=== PATIENT | female | born 1965 | race Caucasian/White ===

== ENCOUNTER → 2021-03-24 22:01 | Outpatient (CLI) | payer BC, SELFPAY ==
[2021-03-24 15:27] VITALS: BMI 51.0
[2021-03-24 22:24] LABS: ALB/GLOB Ratio 0.8 RATIO (0.9-2.4); AST(SGOT) 15 U/L (15-37); Alanine Aminotransfer ALT/SGPT 23 U/L (13-56); Albumin, Serum 3.7 g/dL (3.2-5.0); Alkaline Phosphatase 86 U/L (45-117); Anion Gap 8 (5-15); BUN 22 mg/dL (7-18); BUN/Creat Ratio 26.7 RATIO (10-20); Calcium,Total 9.4 mg/dL (8.5-10.1); Chloride 104 mmol/L (98-107); Cholesterol 267 mg/dL (200); Creatinine, Serum 0.82 mg/dL (0.55-1.02); EST Glomerular Filtration Rate 76 mL/min (>60); Est Glom Filt Rate - Afr Amer 92 mL/min (>60); Globulin 4.5 g/dL (2.2-4.2); Glucose 116 mg/dL (74-106); High Density Lipoprotein 71 mg/dL; Potassium 4.2 mmol/L (3.5-5.1); Protein, Total 8.2 g/dL (6.4-8.2); Sodium Level 137 mmol/L (136-145); Triglycerides 186 mg/dL; Very Low Density Lipoprotein 37 mg/dL (5-40)
== END ==
PROVIDERS: Referring Provider Nurse Practitioner; Visit Provider Nurse Practitioner
DX: E11.65 Type 2 diabetes mellitus with hyperglycemia (principal); E11.69 Type 2 diabetes mellitus with other specified complication; E78.5 Hyperlipidemia, unspecified; I10 Essential (primary) hypertension
CPT/HCPCS: 80053; 80061

== ENCOUNTER 2022-01-24 21:15 | Outpatient (CLI) | payer BC, SELFPAY ==
[2022-01-24 21:37] LABS: ALB/GLOB Ratio 0.8 RATIO (0.9-2.4); AST(SGOT) 14 U/L (15-37); Alanine Aminotransfer ALT/SGPT 22 U/L (13-56); Albumin, Serum 3.6 g/dL (3.2-5.0); Alkaline Phosphatase 77 U/L (45-117); Anion Gap 7 (5-15); BUN 24 mg/dL (7-18); BUN/Creat Ratio 29.6 RATIO (10-20); Calcium,Total 9.6 mg/dL (8.5-10.1); Chloride 108 mmol/L (98-107); Cholesterol 153 mg/dL (200); Creatinine, Serum 0.81 mg/dL (0.55-1.02); EST Glomerular Filtration Rate 77 mL/min (>60); Est Glom Filt Rate - Afr Amer 93 mL/min (>60); Globulin 4.3 g/dL (2.2-4.2); Glucose 127 mg/dL (74-106); High Density Lipoprotein 64 mg/dL; Potassium 4.1 mmol/L (3.5-5.1); Protein, Total 7.9 g/dL (6.4-8.2); Sodium Level 139 mmol/L (136-145); Triglycerides 125 mg/dL; Very Low Density Lipoprotein 25 mg/dL (5-40)
== END 2022-01-24 23:59 | disposition home or self-care (01) ==
PROVIDERS: Visit Provider Nurse Practitioner
DX: E11.69 Type 2 diabetes mellitus with other specified complication (principal); E11.65 Type 2 diabetes mellitus with hyperglycemia; I10 Essential (primary) hypertension; E78.5 Hyperlipidemia, unspecified
CPT/HCPCS: 80053; 80061

== ENCOUNTER → 2023-07-25 | Outpatient (CLI) | payer BC, SELFPAY ==
[2023-07-25 22:12] LABS: Absolute Neutrophil Count 4.3 X10^3/uL (2.0-7.7); Basophil# 0.05 X10^3/uL; Basophil% 0.6 % (0-1); Eosinophil# 0.08 X10^3/uL; Hematocrit 41.9 % (37-47); Hemoglobin 13.6 g/dL (12.0-15.0); Lymphocyte % 38.8 % (19-41); Mean Corp Hgb Conc 32.5 g/dL (32-36); Mean Corpuscular Volume 89.3 fL (81-99); Mean Platelet Vol. 11.4 fl (6.2-12.0); Monocyte# 0.55 X10^3/uL; Monocyte% 6.7 % (0-10); NRBC Flagged by Analyzer 0 % (0-5); Neutrophil # 4.34 X10^3/uL (2.7-7.7); Neutrophil % 52.7 % (47-70); Platelet Count 258 K/mm3 (150-450); RBC Distribution Width CV 14.4 % (11.6-14.6); Red Blood Count 4.69 M/mm3 (4.2-5.4); White Blood Count 8.2 K/mm3 (4.4-11.0)
[2023-07-25 22:18] LABS: ALB/GLOB Ratio 0.9 RATIO (0.9-2.4); AST(SGOT) 15 U/L (15-37); Alanine Aminotransfer ALT/SGPT 27 U/L (13-56); Albumin, Serum 3.5 g/dL (3.2-5.0); Alkaline Phosphatase 87 U/L (45-117); Anion Gap 8 (5-15); BUN 26 mg/dL (7-18); BUN/Creat Ratio 23.2 RATIO (10-20); Calcium,Total 9.3 mg/dL (8.5-10.1); Chloride 107 mmol/L (98-107); Cholesterol 191 mg/dL (200); Creatinine, Serum 1.12 mg/dL (0.55-1.02); EST Glomerular Filtration Rate 53 mL/min (>60); Est Glom Filt Rate - Afr Amer 64 mL/min (>60); Globulin 4.1 g/dL (2.2-4.2); Glucose 217 mg/dL (74-106); High Density Lipoprotein 71 mg/dL; Potassium 3.7 mmol/L (3.5-5.1); Protein, Total 7.6 g/dL (6.4-8.2); Sodium Level 138 mmol/L (136-145); Triglycerides 250 mg/dL; Very Low Density Lipoprotein 50 mg/dL (5-40)
== END | disposition home or self-care (01) ==
PROVIDERS: Visit Provider Nurse Practitioner
DX: E11.69 Type 2 diabetes mellitus with other specified complication (principal); E11.65 Type 2 diabetes mellitus with hyperglycemia; I10 Essential (primary) hypertension; E78.5 Hyperlipidemia, unspecified
CPT/HCPCS: 80053; 80061; 83036; 85025

== ENCOUNTER → 2024-09-08 | Outpatient (CLI) | payer BC, SELFPAY ==
--- OUTSIDE RECORDS SUMMARY | 2024-09-08 21:28 | XMS RPT_ITS | CCD ---
Author Organization [facility] Care Team Providers Care Lasting Machine Operator Name Role Phone ENDER MUÑOZ Yakelin Primary [facility] Unavailable Allergies Allergy Classification Reported Allergen(s) Allergy Type Date of Onset Reaction(s) Facility (1 source) Erythromycin; Translations: [ERYTHROMYCIN] Drug Allergy 6 [facility] Repository (1 source) Penicillins; Translations: [PENICILLINS] Propensity to adverse reactions to drug (disorder) 6 [facility] Repository Problems Problem Classification Problem Date Documented Da te Episodic/Chronic E Codes: Fall (1 source) Unspecified fall, initial encounter; Translations: [Fall, initial encounter] Onset: 09-16-2023 Episodic Other connective tissue disease (1 source) Myalgia, unspecified site; Translations: [Myalgia] Onset: 09-16-2023 Episodic Results Test Name Value Interpretation Reference [facility] HNO ID: [id number] Author: Elina Godoy RT(Sophia) Service: Radiology Author Type: Technologist Type: Allied Health Filed: 09/16/2023 8:13 PM Note Text: Radiology Service Progress Note PATIENT NAME: Felix Juan DATE OF SERVICE: September 16, 2023 TIME: 8:12 PM PATIENT IDENTITY VERIFICATION COMPLETED USING TWO (2) IDENTIFIERS: Name and Date of confirmed by patient verbally. FALL SCREENING: Has the patient had 2 falls in the last year or 1 fall with injury or currently using an Ambulatory Assistive Device (Walker, Cane, Wheelchair, Crutches, etc.)? Emergency Room Patient: Screened in ED PATIENT GENDER DATA: Female. status: : No status: NO. PATIENT RELEVANT IMPLANT DATA REVIEWED: Not Applicable RADIOLOGY DEPARTMENT: General X-ray: Exam(s) Completed: Upper Extremity X-Ray(s): Hand, left PERIPHERAL IV DATA: Not applicable SIGNED BY: RT Jr(R) September 16, 2023 8:[address] [facility] ALL[facility] HNO ID: [id number] Author: Lise Spencer CT Service: Radiology Author Type: Technologist Type: Allied Health Filed: 09/16/2023 7:38 PM Note Text: Radiology Service Progress Note PATIENT NAME: Felix Juan DATE OF SERVICE: September 16, 2023 TIME: 7:35 PM PATIENT IDENTITY VERIFICATION COMPLETED USING TWO (2) IDENTIFIERS: Name and Date of confirmed by patient verbally and Name and Date of confirmed by identification band. FALL SCREENING: Has the patient had 2 falls in the last year or 1 fall with injury or currently using an Ambulatory Assistive Device (Walker, Cane, Wheelchair, Crutches, etc.)? Emergency Room Patient: Screened in ED PATIENT GENDER DATA: Female. status: : No status: NO. PATIENT RELEVANT IMPLANT DATA REVIEWED: Not Applicable RADIOLOGY DEPARTMENT: CT; Exam(s) Completed: Brain and Spine PERIPHERAL IV DATA: Not applicable SIGNED BY: KIRSTEN Marie September 16, 2023 7:[address] [facility] CT BRAIN WO IVCONon 09-16-[address] BRAIN WO IVCON * * *Final Report* * * DATE OF EXAM: Sep 16 2023 7:45PM [facility] - CT BRAIN WO IVCON / PROCEDURE REASON: Head trauma, moderate-severe * * * * Physician Interpretation * * * * EXAMINATION: CT BRAIN WO IVCON, CT CERVICAL SPINE WO IVCON CLINICAL HISTORY: Status post fall. Head and neck pain. Trauma. TECHNIQUE: Serial axial unenhanced images were obtained from the vertex to the foramen magnum. Coronal reconstructions the brain were performed. Spiral, high resolution axial unenhanced images were obtained from the skull base to the cervicothoracic junction with sagittal and coronal planar reconstructions. MQ: CTBCSWO_3 Dose-Length Product (DLP): 1272 mGy*cm. CT Dose Reduction Employed: Automated exposure control(AEC) and iterative recon COMPARISON: 09/27/2018. RESULT: BRAIN: Acute change: No evidence of an acute contusion or other acute parenchymal process. Hemorrhage: No evidence of acute intracranial hemorrhage. Mass lesion / Mass effect: There is no evidence of an intracranial mass or extraaxial fluid collection. No significant mass effect. Chronic change: Scattered patchy foci of low attenuation are present within supratentorial white matter which is a nonspecific finding but likely represents mild microvascular ischemia. Atherosclerotic vascular calcifications are present. Parenchyma: There is mild generalized volume loss. The brain parenchyma is otherwise within normal limits for age. Ventricles: The ventricles are within normal limits of size and configuration for age. Paranasal sinuses and skull base: The visualized paranasal sinuses are grossly clear. The skull base and visualized extracranial soft tissues are grossly normal. Postulant (topogram) images: No additional findings. CERVICAL: Counting reference: Craniocervical junction. Anatomic Variant: None. Assume 7 cervical vertebrae with counting from the craniocervical junction. Alignment: Alignment is anatomic. No acute traumatic subluxation of the cervical spine. Craniocervical junction: Craniocervical junction is normal. Osseous structures/fracture: No evidence of a lytic or blastic process in the visualized spine. No evidence of acute or chronic fracture. Cervical soft tissues: The paraspinal soft tissues planes are maintained. Degenerative changes: Discogenic degenerative changes of the lower cervical spine at C5-6 causing mild central canal stenosis and left-sided neural foraminal narrowing. Postulant (topogram) images: No additional findings. IMPRESSION: No CT evidence of acute intracranial process. No evidence of an acute fracture or acute traumatic subluxation of the cervical spine. Discogenic degenerative changes of the lower cervical spine at C5-6 causing mild central canal stenosis and left-sided neural foraminal narrowing. Scoring Machine Operator: [facility]ITAL[facility] Transcribe Date/Time: Sep 16 2023 7:50P Dictated by : DREW VALADEZ MD This examination was interpreted and the report reviewed and electronically signed by: DREW VALADEZ MD on Sep 16 2023 7:55PM EST [id number] [facility] CT CERVICAL SPINE WO IVCONon 09-16-2023 CT CERVICAL SPINE WO IVCON * * *Final Report* * * DATE OF EXAM: Sep 16 2023 7:45PM [facility] [place] [facility] - CT CERVICAL SPINE WO IVCON / PROCEDURE REASON: Spine fracture, cervical, traumatic * * * * Physician Interpretation * * * * EXAMINATION: CT BRAIN WO IVCON, CT CERVICAL SPINE WO IVCON CLINICAL HISTORY: Status post fall. Head and neck pain. Trauma. TECHNIQUE: Serial axial unenhanced images were obtained from the vertex to the foramen magnum. Coronal reconstructions the brain were performed. Spiral, high resolution axial unenhanced images were obtained from the skull base to the cervicothoracic junction with sagittal and coronal planar reconstructions. MQ: CTBCSWO_3 Dose-Length Product (DLP): 1272 mGy*cm. CT Dose Reduction Employed: Automated exposure control(AEC) and iterative recon COMPARISON: 09/27/2018. RESULT: BRAIN: Acute change: No evidence of an acute contusion or other acute parenchymal process. Hemorrhage: No evidence of acute intracranial hemorrhage. Mass lesion / Mass effect: There is no evidence of an intracranial mass or extraaxial fluid collection. No significant mass effect. Chronic change: Scattered patchy foci of low attenuation are present within supratentorial white matter which is a nonspecific finding but likely represents mild microvascular ischemia. Atherosclerotic vascular calcifications are present. Parenchyma: There is mild generalized volume loss. The brain parenchyma is otherwise within normal limits for age. Ventricles: The ventricles are within normal limits of size and configuration for age. Paranasal sinuses and skull base: The visualized paranasal sinuses are grossly clear. The skull base and visualized extracranial soft tissues are grossly normal. Postulant (topogram) images: No additional findings. CERVICAL: Counting reference: Craniocervical junction. Anatomic Variant: None. Assume 7 cervical vertebrae with counting from the craniocervical junction. Alignment: Alignment is anatomic. No acute traumatic subluxation of the cervical spine. Craniocervical junction: Craniocervical junction is normal. Osseous structures/fracture: No evidence of a lytic or blastic process in the visualized spine. No evidence of acute or chronic fracture. Cervical soft tissues: The paraspinal soft tissues planes are maintained. Degenerative changes: Discogenic degenerative changes of the lower cervical spine at C5-6 causing mild central canal stenosis and left-sided neural foraminal narrowing. Postulant (topogram) images: No additional findings. IMPRESSION: No CT evidence of acute intracranial process. No evidence of an acute fracture or acute traumatic subluxation of the cervical spine. Discogenic degenerative changes of the lower cervical spine at C5-6 causing mild central canal stenosis and left-sided neural foraminal narrowing. Scoring Machine Operator: CARLOS EDUARDO Transcribe Date/Time: Sep 16 2023 7:50P Dictated by : DREW VALADEZ MD This examination was interpreted and the report reviewed and electronically signed by: DREW VALADEZ MD on Sep 16 2023 7:55PM EST [id number] [facility] ED NOTEon 09-16-2023 ED NOTE HNO ID: [id number] Author: Louis Carey RN Service: ? Author Type: Registered Nurse Type: ED Notes Filed: 09/16/2023 8:50 PM Note Text: PT DISCHARGED TO home WITH RX X 1. PT INSTRUCTED TO FOLLOW UP WITH MD IN 3 DAYS. ADVISED TO RETURN TO ED WITH WORSENING SIGNS/SYMPTOMS OR FURTHER CONCERNS. PT VERBALIZED UNDERSTANDING OF PLAN. PT AMBULATED FROM DEPARTMENT WITH A STEADY GAIT WITHOUT DIFFICULTY IN CARE OF spouse. IV REMOVED INTACT PRIOR TO DC. [facility] ED PROV NOTEon 09-16-2023 ED PROV NOTE HNO ID: [id number] Author: Dequan Fu PA-C Service: ? Author Type: Physician Special Education Math Teacher Type: ED Provider Notes Filed: 09/16/2023 8:33 PM Note Text: ED Provider Note Patient Name: Felix Juan : 1965 SERVICE DATE: 09/16/23 History Patient presents with: Fall: Fell down multiple stairs at 1545 today Head Injury Neck Pain 57-year-old female presents to the ED today for mechanical fall, patient fell down a few steps, she heard her head and her neck and her left hand, she denies loss of consciousness, denies chest pain or rib pain or hip pain or any other injuries, she denies any blood thinner use. PAST MEDICAL HISTORY Diagnosis Date PMH - PAST MEDICAL HISTORY OF POLYCYSTIC OVARIAN DISORDER PAST SURGICAL HISTORY Procedure Laterality Date CHOLECYSTECTOMY 1982 Cholecystectomy PAST SURGICAL HISTORY OF 2003 SKIN CANCER-FOREHEAD FAMILY HISTORY Problem Relation Age of Onset Thyroid Mother OF THYROID CANCER Hypertension Father Coronary Artery Disease Father Diabetes Brother Social History Tobacco Use Smoking status: Former Packs/day: 0.50 Years: 20.00 Additional pack years: 0.00 Total pack years: 10.00 Types: Cigarettes Quit date: 11/18/2008 Years since quittin.8 Smokeless tobacco: Never Tobacco comments: less then half a pack most days Vaping Use Vaping Use: Never used Substance and Sexual Activity Alcohol use: Yes Comment: OCCASIONAL Drug use: No Sexual activity: Yes Partners: Male ALLERGIES Allergen Reactions Erythromycin Vomiting Penicillins Swelling Review of Systems Constitutional: Negative for chills and fever. HENT: Negative for drooling, ear discharge, hearing loss, mouth sores, postnasal drip, sneezing and voice change. Eyes: Negative for photophobia and visual disturbance. Respiratory: Negative for chest tightness, shortness of breath and wheezing. Cardiovascular: Negative for chest pain and palpitations. Gastrointestinal: Negative for abdominal distention, abdominal pain, anal bleeding, blood in stool, constipation, diarrhea, nausea, rectal pain and vomiting. Genitourinary: Negative for dysuria, flank pain, hematuria, pelvic pain, vaginal bleeding and vaginal discharge. Musculoskeletal: Positive for myalgias and neck pain. Negative for arthralgias and neck stiffness. Skin: Negative for color change. Neurological: Negative for dizziness, numbness and headaches. Psychiatric/Behaviora l: Negative for agitation and confusion. The patient is not hyperactive. Physical Exam Vitals [09/16/23 1733] BP Pulse Temp Temp src Resp SpO2 Weight Height 142/79 (!) 101 36.7 ?C (98 ?F) Temporal 16 97 % 95.3 kg (210 lb) -- Physical Exam Constitutional: Appearance: She is well-developed. HENT: Head: Normocephalic and atraumatic. Nose: Nose normal. Eyes: Conjunctiva/sclera: Conjunctivae normal. Cardiovascular: Rate and Rhythm: Normal rate and regular rhythm. Pulmonary: Effort: Pulmonary effort is normal. No respiratory distress. Breath sounds: Normal breath sounds. No wheezing. Abdominal: General: Bowel sounds are normal. Palpations: Abdomen is soft. Musculoskeletal: General: Tenderness present. Normal range of motion. Cervical back: Normal range of motion and neck supple. Comments: Tender to palpation over the left pinky, little bruise over the left pinky joint, no obvious deformity, full range of motion, sensation intact, Skin: General: Skin is warm and dry. Neurological: General: No focal deficit present. Mental Status: She is alert and oriented to person, place, and time. GCS: GCS eye subscore is 4. GCS verbal subscore is 5. GCS motor subscore is 6. Cranial Nerves: Cranial nerves 2-12 are intact. Sensory: Sensation is intact. Motor: Motor function is intact. Coordination: Coordination is intact. Comments: Patient is alert and oriented x 3. There is no focal neuro deficit noted on exam, affect is normal, speech is normal to rate and articulation, short-term and long-term memory are intact, PERRLA intact, no nystagmus, no ataxia or aphasia, sensation intact with upper and lower extremities, there is no weakness with upper and lower extremities bilaterally, 5/5 strength in both upper and lower extremities, kqskhz-wv-dcyl intact, ldbg-og-[id number] intact, rapid alternative movements intact. Psychiatric: Behavior: Behavior normal. Diagnostic Testing ED Labs Ordered and Reviewed - No data to display Procedures ED Course / Clinical Impression Clinical Impressions as of 09/16/232031 Myalgia Fall, initial encounter Rest flexeril Home meds See pcp Return to ed if sx worsen MDM / Disposition / Plan The medical record is reviewed.Triage note is reviewed and incorporated.The nursing note is reviewed and consistent with patient's history and physical exam findings. The vital signs were reviewed and the vital signs are : (more content not included)... Normal [facility] XR HAND 3V PA/LAT/OBL LTon 1 XR HAND 3V PA/LAT/OBL LT * * *Final Report* * * DATE OF EXAM: Sep 16 2023 8:12PM MDX [id number] - XR HAND 3V PA/LAT/OBL LT / PROCEDURE REASON: Trauma * * * * Physician Interpretation * * * * EXAMINATION: XR HAND 3V PA/LAT/OBL LT HISTORY: LEFT HAND PAIN Trauma. TECHNIQUE: XR HAND 3V PA/LAT/OBL LT Laterality: LEFT Number of different views (projections): 3 M: XB_1 COMPARISON: None. RESULT: No acute fracture or malalignment. Joint spaces are preserved. No radiopaque foreign body. IMPRESSION: No acute fracture or malalignment. Scoring Machine Operator: PSCB Transcribe Date/Time: Sep 16 2023 8:14P Dictated by : JOAO FIERRO MD This examination was interpreted and the report reviewed and electronically signed by: JOAO FIERRO MD on Sep 16 2023 8:15PM EST [id number] Normal [facility] Coronavirus 2019on 0 COVID 19 Result SHINGLE SAWYER Negative Normal Negative for COVID19 (SARS CoV2) by PCR. [facility] Comment on above: Result Comment: This test was developed and its performance characteristics determined by [facility] [place]. This test has been authorized by FDA under an Emergency Use Authorization (EUA). This test has been validated in accordance with the FDA's Guidance Document Policy for Diagnostics Testing in Laboratories Certified to Perform High Complexity Testing under CLIA prior to Emergency use Authorization for Coronavirus Disease 2019 during the Public Health Emergency issued on January 16, 2020. Performed By: #### C OVID ####[facility] [id number] [place], [place] [phone] COVID 19 Source SHINGLE SAWYER Nasopharyngeal Swab Normal [facility] Comment on above: Performed By: #### C OVID ####[facility] [id number] [place], [place] [phone] Edyta 03-10-2020 CNPN Telephone (COVHLD) FELIX JUAN ([id number]) 1965 F Date Time Provider Department 03/10/20 NAZ CASTILLO) COVSYDNEY During your visit today, we recorded the following information about you: Naz Castillo PA-C 03/10/2020 9:00 AM Signed covid hotline, chart reviewed COVID-19 (Novel Coronavirus): ? You are being tested for COVID-19. You will be notified within 2 days if your test comes back positive. ? While awaiting these results, please refer to the following recommendations from the CDC regarding isolation precautions: Steps to Follow: Isolation: You should follow the prevention steps below until a healthcare provider or local or state health department says you can return to your normal activities. Stay home except to get medical care ? People who are mildly ill with COVID-19 are able to isolate at home during their illness. ? You should restrict activities outside your home, except for getting medical care. ? Do not go to work, school, or public areas. Avoid using public transportation, ride-sharing, taxis, or public air travel. Separate yourself from other people and animals in your home People: As much as possible, you should stay in a specific room and away from other people in your home. Also, you should use a separate bathroom, if available. Animals: You should restrict contact with pets and other animals while you are sick with COVID-19, just like you would around other people. Although there have not been reports of pets or other animals becoming sick with COVID-19, it is still recommended that people sick with COVID-19 limit contact with animals until more information is known about the virus. When possible, have another member of your household care for your animals while you are sick. If you are sick with COVID-19, avoid contact with your pet, including petting, snuggling, being kissed or licked, and sharing food. If you must care for your pet or be around animals while you are sick, wash your hands before and after you interact with pets and wear a facemask. See COVID-19 and Animals for more information. Call ahead before visiting your doctor If you have a medical appointment, call the healthcare provider and tell them that you have or may have COVID-19. This will help the healthcare provider's office take steps to keep other people from getting infected or exposed. Personal Protection: You should wear a facemask when you are around other people (e.g., sharing a room or vehicle) or pets. If you are not able to wear a facemask (for example, because it causes trouble breathing), then people who live with you should not stay in the same room with you, or they should wear a facemask if they enter your room. Cover your coughs and sneezes ? Cover your mouth and nose with a tissue when you cough or sneeze. Throw used tissues in a lined trash can. Immediately wash your hands with soap and water for at least 20 seconds or, if soap and water are not available, clean your hands with an alcohol-based hand dog food dough mixer that contains at least 60% alcohol. ? Wash your hands often with soap and water for at least 20 seconds, especially after blowing your nose, coughing, or sneezing; going to the bathroom; and before eating or preparing food. If soap and water are not readily available, use an alcohol-based hand dog food dough mixer with at least 60% alcohol, covering all surfaces of your hands and rubbing them together until they feel dry. Soap and water are the best option if hands are visibly dirty. ? Avoid touching your eyes, nose, and mouth with unwashed hands. Avoid sharing personal household items ? You should not share dishes, drinking glasses, cups, eating utensils, towels, or bedding with other people or pets in your home. After using these items, they should be washed thoroughly with soap and water. Clean all High-touch surfaces everyday ? High touch surfaces include counters, tabletops, doorknobs, bathroom fixtures, toilets, phones, keyboards, tablets, and bedside tables. Use a household cleaning spray or wipe, according to the label instructions. Labels contain instructions for safe and effective use of the cleaning product including precautions you should take when applying the product, such as wearing gloves and making sure you have good ventilation during use of the product. Monitor your symptoms: ? Seek prompt medical attention if your illness is worsening (e.g., difficulty breathing). ? Before seeking care, call your healthcare provider and tell them that you have, or are being evaluated for, COVID-19. Put on a facemask before you enter the facility. These steps will help the healthcare provider's office to keep other people in the office or waiting room from getting infected or exposed. ? If you have a medical emergency and need to call 911, notify the dispatch personnel that you have, or are being evaluated for COVID-19. If possible, put on a facemask before emergency medical services arrive. Discontinuing home isolation: ? Patients with confirmed COVID-19 should remain under home isolation precautions until the risk of secondary transmission to others is thought to be low. The decision to discontinue home isolation precautions should be made on a [id number]-cp-cjim basis, in consultation with healthcare providers and state and local health departments. Close contacts (household members, intimate partners, and caregivers) should follow these recommendations: ? Close contacts should monitor their health; they should call their healthcare provider right away if they develop symptoms suggestive of COVID-19 (e.g., fever, cough, shortness of breath) (see Interim [place] Guidance for Risk Assessment and Public Health Management of Persons with Potential Coronavirus Disease 2019 (COVID-19) Exposure in Travel-associated or Community Settings.) ? Make sure that you understand and can help the patient follow their healthcare provider's instructions for medication(s) and care. You should help the patient with basic needs in the home and provide support for getting groceries, prescriptions, and other personal needs. ? Monitor the patient's symptoms. If the patient is getting sicker, call their healthcare provider and tell them that the patient is being tested for COVID-19. This will help the healthcare provider's office take steps to keep other people in the office or waiting room from getting infected. Ask the healthcare provider to call the local or state health department for additional guidance. If the patient has a medical emergency and you need to call 911, notify the dispatch personnel that the patient has, or is being evaluated for COVID-19. ? Household members should stay in another room or be from the patient as much as possible. Household members should use a separate bedroom and bathroom, if available. ? Prohibit visitors who do not have an essential need to be in the home. ? Make sure that shared spaces in the home have good air flow, such as by an air conditioner or an opened window, weather permitting. ? Perform hand hygiene frequently. Wash your hands often with soap and water for at least 20 seconds or use an alcohol-based hand dog food dough mixer that contains 60 to 95% alcohol, covering all surfaces of your hands and rubbing them together until they feel dry. Soap and water should be used preferentially if hands are visibly dirty. ? Avoid touching your eyes, nose, and mouth with unwashed hands. ? The patient should wear a facemask when around other people. If the patient is not able to wear a facemask (for example, because it causes trouble breathing), you, as the caregiver, should wear a mask when you are in the same room as the patient. ? Wear a disposable facemask and gloves when you touch or have contact with the patient's blood, stool, or body fluids, such as saliva, sputum, nasal mucus, vomit, urine. o Throw out disposable facemasks and gloves after using them. Do not reuse. o When removing personal protective equipment, first remove and dispose of gloves. Then, immediately clean your hands with soap and water or alcohol-based hand dog food dough mixer. Next, remove and dispose of facemask, and immediately clean your hands again with soap and water or alcohol-based hand dog food dough mixer. ? Avoid sharing household items with the patient. You should not share dishes, drinking glasses, cups, eating utensils, towels, bedding, or other items. After the patient uses these items, you should wash them thoroughly ? Wash laundry thoroughly. o Immediately remove and wash clothes or bedding that have blood, stool, or body fluids on them. o Wear disposable gloves while handling soiled items and keep soiled items away from your body. Clean your hands (with soap and water or an alcohol-based hand dog food dough mixer) immediately after removing your gloves. o Read and follow directions on labels of laundry or clothing items and detergent. In general, using a normal laundry detergent according to washing machine instructions and dry thoroughly using the warmest temperatures recommended on the clothing label. ? Place all used disposable gloves, facemasks, and other contaminated items in a lined container before disposing of them with other household waste. Clean your hands (with soap and water or an alcohol-based hand dog food dough mixer) immediately after handling these items. Soap and water should be used preferentially if hands are visibly dirty. ? Discuss any additional questions with your state or local health department or healthcare provider. Additional information Home healthcare personnel should refer to Interim Infection Prevention and Control Recommendations for Patients with Known or Patients Under Investigation for Coronavirus Disease 2019 (COVID-19) in a Healthcare Setting. Close contact is defined as? a) being within approximately 6 feet (2 meters) of a COVID-19 case for a prolonged period of time; close contact can occur while caring for, living with, visiting, or sharing a health care waiting area or room with a COVID-19 case ? or ? b) having direct contact with infectious secretions of a COVID-19 case (e.g., being coughed on). Allergies As of Date: 03/10/2020 Noted Allergy Reaction ERYTHROMYCIN 01/15/2006 11 - Vomiting PENICILLINS 01/15/2006 7 - Swelling Date Reviewed: 10/17/2018 Reviewed by: Mandie Conte Baon - Fully Assessed Reason for Visit: Covid-19 Hotline [1266] Primary Visit Diagnosis:COVID-19 [U07.1, J98.8] Order(s):2019 CORONAVIRUS [SQCOVID] Order #: [id number] FUTURE Prescriptions as of 03/10/2020 Sig: METFORMIN ER 500 MG TABLET,EX* Take 4 tablets by mouth daily* MEDICATION, NON-DATABASE Glucometer. Dx: type 2 DM. To* MEDICATION, NON-DATABASE Teststrips, dispense specific* LANCETS Dispense specific to glucomet* ALCOHOL SWABS Apply 1 application to affect* LISINOPRIL 20 MG TABLET Take 1 tablet by mouth once d* IBUPROFEN 200 MG TABLET Take 200 mg by mouth every 6 * Problem List As Of Date: 03/10/2020 (None) Encounter Status:Closed by NAZ CASTILLO PA-C on 03/10/20 [facility] PROGRESSon 03-10-2020 PROGRESS HNO ID: [id number] Author: Trenton Mcmillan (Pa) Service: ? Author Type: Physician Special Education Math Teacher Type: Progress Notes Filed: 03/10/2020 8:58 AM Note Text: This is an Express Care eVisit note for Felix Denise/Questionnaire reviewed The chief complaint for the visit - Patient presents with: Covid19 [facility]x of DM with anosmia, cough chills. Trenton Mcmillan PA-C [facility] PROGRESSon 06-04-2019 PROGRESS HNO ID: [id number] Author: Hazel Carrera Service: ? Author Type: Trust Evaluation Supervisor Type: Progress Notes Filed: 06/04/2019 9:41 AM Note Text: POP[facility]ATION [facility]ALTH DRAG SAWYER QUICKNOTE Provider Action/FYI: Pended Orders None PHMA Documentation 03/04/2019 03/05/2019 05/18/2019 06/04/2019 Opts out of Population Health Postponed Postponed Postponed Postponed Postponed Date 03/05/2019 05/05/2019 07/19/2019 08/05/2019 Hazel Carrera MA Patient identified by name and . Hazel Carrera MA [facility] PROGRESS HNO ID: [id number] Author: Hazel Carrera Service: ? Author Type: Trust Evaluation Supervisor Type: Progress Notes Filed: 06/04/2019 9:41 AM Note Text: POPULATION HEALTH DRAG SAWYER QUICKNOTE Provider Action/FYI: Print letter, gave to [facility] primary care assistant front office manager to assist an sending certified per Wendy Sorto MD Patient identified by name and . Hazel Carrera MA [facility] PROGRESSon 06-03-2019 PROGRESS HNO ID: [id number] Author: Teri Owens RN Service: ? Author Type: ? Type: Progress Notes Filed: 06/04/2019 9:41 AM Note Text: Message left for patient today on Home and Cell phone To call this office patient needs a follow Up for HCC DM see action items below [facility] CNPNon 06-02-2019 CNPN Telephone ([facility]) FELIX JUAN ([id number]) 1965 F Date Time Provider Department 06/02/19 MEY (PHARMACIST)DEA [facility] During your visit today, we recorded the following information about you: FERNIE HURTADO 06/02/2019 9:23 AM Signed Patient recently referred by PCP to [facility] for DM mngt Called patient to schedule initial appt Unable to reach patient - LMOM to return call to office Dea Mathias PharmD, [facility] Primary Care Clinical Pharmacist Anette Velazquez [facility] FERNIE HURTADO 06/10/2019 11:31 AM Signed Patient recently referred by PCP to [facility] for DM mngt Called patient to schedule initial appt Unable to reach patient - LMOM to return call to office My 2nd attempt reaching out to patient. She [facility] and did not return call. ? ? Dea Mathias PharmD, [facility] Primary Care Clinical Pharmacist Adriana RONQUILLO [facility] DEA MATHIAS PHARMACIST 07/01/2019 2:29 PM Signed Patient has still not returned call to schedule initial appt for DM mngt. Will send letter today and inform PCP. Dea Mathias PharmD, [facility] Primary Care Clinical Pharmacist Adriana RONQUILLO [facility] [address] Guerrierobdulio Pss 07/07/2019 8:07 AM Signed Patient is going elsewhere for her treatment Allergies As of Date: 06/02/2019 Noted Allergy Reaction ERYTHROMYCIN 01/15/2006 11 - Vomiting PENICILLINS 01/15/2006 7 - Swelling Date Reviewed: 10/17/2018 Reviewed by: Mandie Purvis - Fully Assessed Reason for Visit: Patient Outreach [Other] Prescriptions as of 06/02/2019 Sig: METFORMIN ER 500 MG TABLET,EX* Take 4 tablets by mouth daily* MEDICATION, NON-DATABASE Glucometer. Dx: type 2 DM. To* MEDICATION, NON-DATABASE Teststrips, dispense specific* LANCETS Dispense specific to glucomet* ALCOHOL SWABS Apply 1 application to affect* LISINOPRIL 20 MG TABLET Take 1 tablet by mouth once d* IBUPROFEN 200 MG TABLET Take 200 mg by mouth every 6 * Problem List As Of Date: 06/02/2019 (None) Letter Text Encounter Status:Closed by MEY (PHARMACIST)DEA on 06/02/19 [facility] 05-25-2019 CNPN Telephone (PHARMN) FELIX JUAN ([id number]) 1965 F Date Time Provider Department 05/25/19 SOSA CHACON [place]N During your visit today, we recorded the following information about you: PATINECE Rojas [facility] 05/25/2019 9:17 AM Signed Called pt. regarding New Pharmacy referral, left message at [phone]. PATIENCE Rojas [facility] 05/25/2019 2:00 PM Signed Called pt. regarding New Pharmacy referral, left message at [phone]. Sosa Jania [facility] 05/26/2019 10:34 AM Signed Called pt. regarding New Pharmacy referral, left message asking pt. to call the [facility] at her earliest convenience to schedule an appt. [phone]. Allergies As of Date: 05/25/2019 Noted Allergy Reaction ERYTHROMYCIN 01/15/2006 11 - Vomiting PENICILLINS 01/15/2006 7 - Swelling Date Reviewed: 10/17/2018 Reviewed by: Mandie Purvis - Fully Assessed Reason for Visit: New Pharmacy-Med Review [Other] Prescriptions as of 05/25/2019 Sig: METFORMIN ER 500 MG TABLET,EX* Take 4 tablets by mouth daily* MEDICATION, NON-DATABASE Glucometer. Dx: type 2 DM. To* MEDICATION, NON-DATABASE Teststrips, dispense specific* LANCETS Dispense specific to glucomet* ALCOHOL SWABS Apply 1 application to affect* LISINOPRIL 20 MG TABLET Take 1 tablet by mouth once d* IBUPROFEN 200 MG TABLET Take 200 mg by mouth every 6 * Problem List As Of Date: 05/25/2019 (None) Encounter Status:Closed by SOSA CHACON on 05/25/19 [facility] PROGRESSon 05-22-2019 PROGRESS HNO ID: [id number] Author: Wendy Sorto Service: ? Author Type: Physician Type: Progress Notes Filed: 06/04/2019 9:41 AM Note Text: Were you able to reach her? Consult signed Thanks, Dr. Sorto [facility] 05-20-2019 CNPTOUTREACH Patient Outreach ([facility]) FELIX JUAN ([id number]) 1965 F Date Time Provider Department 05/20/19 HAZEL CARRERA) AALIYAH During your visit today, we recorded the following information about you: DEA MATHIAS, PHARMACIST 06/04/2019 9:41 AM Signed A PSS from main campus has made 3 attempts to contact her to schedule appt, most recent attempt was this morning. I plan to try again to contact the patient within the next week. Dea Mathias, PharmD, BCPS Primary Care Clinical Pharmacist Anette Velazquez [facility] Hazel Carrera MA 06/04/2019 9:41 AM Signed PHMA TEAMLET DOCUMENTATION Provider Action/FYI: please sign pended consult PHMA Action/FYI: pended Pharmacy consult to assist an outreaching patient as Hgb a1c is 12.6 with education, medication management Patient has existing fasting labs that need completed Patient will need to have a follow up appointment/virtual visit with Wendy Sorto MD at some point to address all health maintenance items - patient has a complicated work schedule, telephonic may be beneficial or virtual visits Teamlet has identified patient by name and date of . Team: Wendy Sorto MD Pharmacist: Dr. Dea Mathias PHMA: Hazel Carrera RN: Teri Owens PCC: Agnes Flores PSS: Kirstin Vela MA: Indu Turner ? Last Office Visit:10/17/2018 ? Next Office Visit: Visit date not found ? Last BP/Labs: Blood Pressure: Last 3 Encounter BP Readings: Date: BP: 10/17/2018 189/85 10/03/2018 174/86 09/27/2018 180/94[pa sarojaway[ Lipids: No results found for: CHOL No results found for: HDL LDL CholAnette (mg/dL) Date Value 03/25/2006 141 01/31/2006 142 No results found for: TG HGB A1C: Lab Results Component Value Date HBA1C 12.6 10/03/2018 TSH: No results found for: TSH) Care Gap: DM - Need Urine Albumin / NOT checked in last 12 months Needs dilated eye exam - HM overdue Last HGBA1C is NOT under 9% Plan: ? Confirm PCP / Status: active ? Type of appointment needed: Follow-up with Wendy Sorto MD for Diabetes ? Consultation Appointments: Clinical Pharmacy with 2-3 weeks Labs, HM and Immunization: Differ to Health Maintenance as multiple health maintenance items due DONATO Ramirez MD 06/04/2019 9:41 AM Signed Were you able to reach her? Consult signed Thanks, Dr. Noreen Owens RN 06/04/2019 9:41 AM Signed Message left for patient today on Home and Cell phone To call this office patient needs a follow Up for HCC DM see action items below Hazel Carrera MA 06/04/2019 9:41 AM Signed [facility] DRAG SAWYER [place]INGA Provider Action/FYI: Print letter, gave to [facility] primary care assistant front office manager to assist an sending certified per Wendy Sorto MD Patient identified by name and . DONATO Ramirez MA 06/04/2019 9:41 AM Signed [facility] DRAG SAWYER [place]A Provider Action/FYI: Pended Orders None PHMA Documentation 03/04/2019 03/05/2019 05/18/2019 06/04/2019 Opts out of [facility] Postponed Postponed Postponed Postponed Postponed Date 03/05/2019 05/05/2019 07/19/2019 08/05/2019 Hazel Carerra MA Patient identified by name and . Hazel Carrera MA Allergies As of Date: 05/20/2019 Noted Allergy Reaction ERYTHROMYCIN 01/15/2006 11 - Vomiting PENICILLINS 01/15/2006 7 - Swelling Date Reviewed: 10/17/2018 Reviewed by: Mandie Purvis - Fully Assessed Reason for Visit: PHMA/Care Gap Outreach [[id number]] Cmt: Dr. Wendy Sorto STAMP on 05/20/19 - Diabetes/Hypertension Reason For Visit History Recorded Primary Visit Diagnosis:Diabetes mellitus, new onset (HCC) [E11.9] Other Visit Diagnosis:Hypertensio n, essential [I10] Order(s):CONSULT TO AMBULATORY CLINIC PHARMACY [372342] Order #: [id number]: 1 Prescriptions as of 05/20/2019 Sig: METFORMIN ER 500 MG TABLET,EX* Take 4 tablets by mouth daily* MEDICATION, NON-DATABASE Glucometer. Dx: type 2 DM. To* MEDICATION, NON-DATABASE Teststrips, dispense specific* LANCETS Dispense specific to glucomet* ALCOHOL SWABS Apply 1 application to affect* LISINOPRIL 20 MG TABLET Take 1 tablet by mouth once d* IBUPROFEN 200 MG TABLET Take 200 mg by mouth every 6 * Problem List As Of Date: 05/20/2019 (None) Letter Text Encounter Status:Closed by HAZEL LOTT on 06/04/19 [facility] PROGRESSon 05-20-2019 PROGRESS HNO ID: [id number] Author: Hazel Hamlin (Donato) Royer Service: ? Author Type: Trust Evaluation Supervisor Type: Progress Notes Filed: 06/04/2019 9:41 AM Note Text: PHMA TEAMLET DOCUMENTATION Provider Action/FYI: please sign pended consult PHMA Action/FYI: pended Pharmacy consult to assist an outreaching patient as Hgb a1c is 12.6 with education, medication management Patient has existing fasting labs that need completed Patient will need to have a follow up appointment/virtual visit with Wendy Sorto MD at some point to address all health maintenance items - patient has a complicated work schedule, telephonic may be beneficial or virtual visits Teamlet has identified patient by name and date of . Team: Wendy Sorto MD Pharmacist: Dr. Dea Mathias PHMA: Hazel Carrera RN: Teri Owens PCC: Agnes Flores PSS: Kirstin Vela MA: Indu Turner ? Last Office Visit:10/17/2018 ? Next Office Visit: Visit date not found ? Last BP/Labs: Blood Pressure: Last 3 Encounter BP Readings: Date: BP: 10/17/2018 189/85 10/03/2018 174/86 09/27/2018 180/94[pa sarojaway[ Lipids: No results found for: CHOL No results found for: HDL LDL Chol, [place] (mg/dL) Date Value 03/25/2006 141 01/31/2006 142 No results found for: TG HGB A1C: Lab Results Component Value Date HBA1C 12.6 10/03/2018 TSH: No results found for: TSH) Care Gap: DM - Need Urine Albumin / NOT checked in last 12 months Needs dilated eye exam - HM overdue Last HGBA1C is NOT under 9% Plan: ? Confirm PCP / Status: active ? Type of appointment needed: Follow-up with Wendy Sorto MD for Diabetes ? Consultation Appointments: Clinical Pharmacy with 2-3 weeks Labs, HM and Immunization: Differ to Health Maintenance as multiple health maintenance items due Hazel Carrera MA [facility] PROGRESS HNO ID: [id number] Author: Dea Mathias (Pharmacist) Service: ? Author Type: Pharmacist Type: Progress Notes Filed: 06/04/2019 9:41 AM Note Text: A PSS from [facility] has made 3 attempts to contact her to schedule appt, most recent attempt was this morning. I plan to try again to contact the patient within the next week. Dea Mathias, PharmD, BCPS Primary Care Clinical Pharmacist Anette Velazquez [facility] PROGRESSon 05-18-2019 PROGRESS HNO ID: [id number] Author: Kirstin Vela Pss Service: ? Author Type: ? Type: Progress Notes Filed: 05/18/2019 4:25 PM Note Text: The patient has been identified by name and date of : YES I have scheduled the patient for an appointment on Visit date not found. PHMA Documentation 03/03/2019 03/04/2019 03/05/2019 05/18/2019 Opts out of Population Health Postponed Postponed Postponed Postponed Postponed Date 03/04/2019 03/05/2019 05/05/2019 07/19/2019 Kirstin Vela [facility] [place] 05-06-2019 CNPTOUTREACH Patient Outreach ([facility]) FELIX JUAN ([id number]) 1965 F Date Time Provider Department 05/06/19 KIRSTIN VELA ([facility]) [facility] During your visit today, we recorded the following information about you: Kirstin Vela Pss 05/18/2019 4:25 PM Signed Patient needs a follow up with Susy Rivas, Ry HCC diabetes, please add to appt note may need pharm consult SHIRA with Dr Sorto 10/17/19 Patient canceled OV on 01/20/[address] Noreen Vela [facility] 05/18/2019 4:25 PM Signed Spoke to patient, it was not a good time to schedule, 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 Patient will call back to schedule appointment. Kirstin Whitney 05/18/2019 4:25 PM Signed The patient has been identified by name and date of : YES I have scheduled the patient for an appointment on Visit date not found. [facility] Documentation 03/03/2019 03/04/2019 03/05/2019 05/18/2019 Opts out of Population Health Postponed Postponed Postponed Postponed Postponed Date 03/04/2019 03/05/2019 05/05/2019 07/19/2019 Kirstin Whitney Allergies As of Date: 05/06/2019 Noted Allergy Reaction ERYTHROMYCIN 01/15/2006 11 - Vomiting PENICILLINS 01/15/2006 7 - Swelling Date Reviewed: 10/17/2018 Reviewed by: Mandie Purvis - Fully Assessed Reason for Visit: [facility]/Care Gap Outreach [[id number]] Cmt: Dr Sorto STAMP Teamlet 05/06 Prescriptions as of 05/06/2019 Sig: METFORMIN ER 500 MG TABLET,EX* Take 4 tablets by mouth daily* MEDICATION, NON-DATABASE Glucometer. Dx: type 2 DM. To* MEDICATION, NON-DATABASE Teststrips, dispense specific* LANCETS Dispense specific to glucomet* ALCOHOL SWABS Apply 1 application to affect* LISINOPRIL 20 MG TABLET Take 1 tablet by mouth once d* IBUPROFEN 200 MG TABLET Take 200 mg by mouth every 6 * Problem List As Of Date: 05/06/2019 (None) Encounter Status:Closed by KIRSTIN PANTOJA on 05/18/19 [facility] PROGRESSon 05-06-2019 PROGRESS HNO ID: [id number] Author: Kirstin Whitney Service: ? Author Type: ? 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 Patient will call back to schedule appointment. [facility] PROGRESS HNO ID: [id number] Author: Kirstin Whitney Service: ? Author Type: ? Type: Progress Notes Filed: 05/18/2019 4:25 PM Note Text: Patient needs a follow up with Susy Rivas Cnp HCC diabetes, please add to appt note may need pharm consult SHIRA with Dr Sorto 10/17/19 Patient canceled OV on 01/20/[address] Sorto [facility] Encounters Encounter Date Encounter Type Care Provider Facility Start: 09-16-2023 End: 09-16-2023 Emergency department patient visit ENDER MUÑOZ Facility:[facility] Payers Date Payer Category Payer Unknown [id number] Summary Purpose Family History No Family History Records FoundNo Family History Records Found Advance Directives No Advanced Directives Records FoundNo Advanced Directives Records Found Additional Source Comments INFORMATION SOURCE (unrecogn ized section and content) DATE CREATED AUTHOR 03/15/2020 [facility] DATE CREATED AUTHOR AUTHOR'S SAGEIZ ATION 09/17/2023 [facility] FOR RECORDS PERTAINING TO PATIENTS WHO ARE OR HAVE BEEN ENROLLED IN A CHEMICAL DEPENDENCY/SUBSTANCEABUSE PROGRAM, SOME INFORMATION MAY BE OMITTED. This clinical summary was aggregated from multiple sources. Caution should be exercised in using it in the provision of clinical care. This summary normalizes information from multiple sources, and as a consequence, information in this document may materially change the coding, format and clinical context of patient data. In addition, data may be omitted in some cases. CLINICAL DECISIONS SHOULD BE BASED ON THE PRIMARY CLINICAL RECORDS. [employer] provides no warranty or guarantee of the accuracy or completeness of information in this document.
[2024-09-08 21:32] LABS: Absolute Lymphocyte Count 4.53 X10^3/uL (0.83-4.51); Absolute Neutrophil Count 3.7 X10^3/uL (2.0-7.7); Basophil# 0.07 X10^3/uL; Basophil% 0.7 % (0-1); Eosinophil# 0.29 X10^3/uL; Eosinophils% 3.1 % (0-5); Hematocrit 41.9 % (37-47); Hemoglobin 13.4 g/dL (12.0-15.0); Lymphocyte # 4.53 X10^3/ul (0.83-4.51); Lymphocyte % 48.3 % (19-41); Mean Corpuscular Hgb 28.3 pg (27.0-32.0); Mean Corpuscular Volume 88.6 fL (81-99); Mean Platelet Vol. 10.7 fl (6.2-12.0); Monocyte# 0.74 X10^3/uL; Monocyte% 7.9 % (0-10); NRBC Flagged by Analyzer 0 % (0-5); Neutrophil # 3.72 X10^3/uL (2.7-7.7); Neutrophil % 39.8 % (47-70); POSITIVE MORPHOLOGY YES; Platelet Count 262 K/mm3 (150-450); RBC Distribution Width CV 15.1 % (11.6-14.6); RBC Distribution Width SD 49.2 fl (35.1-43.9); Red Blood Count 4.73 M/mm3 (4.2-5.4); White Blood Count 9.4 K/mm3 (4.4-11.0)
[2024-09-08 21:37] LABS: Differential Indicated SCAN CRITERIA MET
[2024-09-08 21:44] LABS: ALB/GLOB Ratio 0.9 RATIO (0.9-2.4); AST(SGOT) 20 U/L (15-37); Alanine Aminotransfer ALT/SGPT 43 U/L (13-56); Albumin, Serum 3.6 g/dL (3.2-5.0); Alkaline Phosphatase 91 U/L (45-117); Anion Gap 7 (5-15); BUN 25 mg/dL (7-18); BUN/Creat Ratio 28.1 RATIO (10-20); Calcium,Total 9.5 mg/dL (8.5-10.1); Chloride 108 mmol/L (98-107); Cholesterol 195 mg/dL (200); Creatinine, Serum 0.89 mg/dL (0.55-1.02); EST Glomerular Filtration Rate 69 mL/min (>60); Est Glom Filt Rate - Afr Amer 83 mL/min (>60); Globulin 4.2 g/dL (2.2-4.2); Glucose 251 mg/dL (74-106); High Density Lipoprotein 65 mg/dL; Potassium 4.2 mmol/L (3.5-5.1); Protein, Total 7.8 g/dL (6.4-8.2); Sodium Level 139 mmol/L (136-145); Triglycerides 226 mg/dL; Very Low Density Lipoprotein 45 mg/dL (5-40)
[2024-09-08 22:32] LABS: Differential Comment SCANNED
== END | disposition home or self-care (01) ==
PROVIDERS: Referring Provider Nurse Practitioner; Visit Provider Nurse Practitioner
DX: Z00.00 Encounter for general adult medical examination without abnormal findings (principal)
CPT/HCPCS: 80053; 80061; 85025

== ENCOUNTER → 2024-10-13 | Outpatient (CLI) | payer BC, SELFPAY ==
[2024-10-13 22:46] LABS: Hemoglobin A1c 12.4 % (3.8-5.6)
== END | disposition home or self-care (01) ==
PROVIDERS: Visit Provider Nurse Practitioner
DX: E11.69 Type 2 diabetes mellitus with other specified complication (principal); E11.65 Type 2 diabetes mellitus with hyperglycemia; E78.5 Hyperlipidemia, unspecified; E66.9 Obesity, unspecified
CPT/HCPCS: 82533; 83036; 84443

== ENCOUNTER → 2025-09-13 | Outpatient (CLI) | payer BC, SELFPAY ==
[2025-09-13 22:37] LABS: Hematocrit 40.4 % (37-47); Hemoglobin 13.1 g/dL (12.0-15.0); Immature Granulocytes Count 0.010 X10^3/uL (0.0-0.0); Mean Corp Hgb Conc 32.4 g/dL (32-36); Mean Corpuscular Volume 89.8 fL (81-99); Mean Platelet Vol. 12.2 fl (6.2-12.0); NRBC Flagged by Analyzer 0 % (0-5); Platelet Count 285 K/mm3 (150-450); RBC Distribution Width CV 13.9 % (11.6-14.6); RBC Distribution Width SD 45.3 fl (35.1-43.9); Red Blood Count 4.50 M/mm3 (4.2-5.4); White Blood Count 8.0 K/mm3 (4.4-11.0)
[2025-09-13 22:56] LABS: AST(SGOT) 19 U/L (<=31); Alanine Aminotransfer ALT/SGPT 21 U/L (<=34); Albumin, Serum 4.1 g/dL (3.4-4.8); Alkaline Phosphatase 86 U/L (35-104); Anion Gap 13 (5-15); BUN 30 mg/dL (4-19); BUN/Creat Ratio 33.4 RATIO (10-20); Calcium,Total 9.9 mg/dL (7.6-11.0); Carbon Dioxide 20.9 mmol/L (21.0-32.0); Chloride 103 mmol/L (98-108); Cholesterol 212 mg/dL (<=200); Globulin 3.4 g/dL (2.2-4.2); Glucose 305 mg/dL (70-99); Low Density Lipoprotein Calc. 87 mg/dL; Potassium 4.2 mmol/L (3.3-5.1); Triglycerides 440 mg/dL; Very Low Density Lipoprotein 88 mg/dL (5-40); cholesterol:hdl ratio screen 3.93
== END | disposition home or self-care (01) ==
PROVIDERS: PCP Nurse Practitioner; Referring Provider Nurse Practitioner; Visit Provider Nurse Practitioner
DX: Z00.00 Encounter for general adult medical examination without abnormal findings (principal)
CPT/HCPCS: 80053; 80061; 83036; 85025